=== PATIENT | male | born 1990 | race Two or more races ===

== ENCOUNTER 2019-04-14 18:26 | Emergency (ER) | payer SELFPAY ==
[~2019-04-14] VITALS: Ht 188 cm; Wt 97.5 kg
[2019-04-14] MEDS ORDERED: SODIUM CHLORIDE 0.9% 1,000 ML IV ONE ×2 (18:45→20:00)
[2019-04-14 19:22] LABS: Basophils # (auto) 0 uL; Basophils % (auto) 0.2 % (0.0-2.0); Eosinophils # (auto) 0.1 uL; Eosinophils % (auto) 0.5 % (0.0-7.0); Hemoglobin 14.7 g/dL (13.5-17.5); Lymphocytes # (auto) 1.6 uL; Lymphocytes % (auto) 12.9 % (10.0-50.0); Mean Corpuscular Hemoglobin 32.2 pg (28.0-32.0); Mean Corpuscular Hgb Conc. 34.1 g/dL (32.0-36.0); Mean Corpuscular Volume 94.4 fL (80.0-100.0); Monocytes # (auto) 0.9 uL; Monocytes % (auto) 7.3 % (0.0-12.0); Neutrophils # (auto) 9.7 uL; Neutrophils % (auto) 79.1 % (37.0-80.0); Platelet Count (auto) 225 10^3/uL (140-450); Red Blood Cells 4.55 10^6/uL (4.5-5.90); Red Cell Distribution Width 13.2 % (11.8-14.3); White Blood Cell 12.2 10^3/uL (4.4-10.8)
[2019-04-14 19:41] LABS: Salicylate 2.8 mg/dL (2.8-20.0)
[2019-04-14 19:42] LABS: Acetaminophen < 2.0 ug/mL (10-30)
[2019-04-14 19:44] LABS: Anion Gap 8 (5-15); BUN/Creatinine Ratio 11.4; Blood Alcohol < 3.0 mg/dL (0-5); Blood Urea Nitrogen 12 mg/dL (7-18); Calcium 8.7 mg/dL (8.5-10.1); Carbon Dioxide 29 mmol/L (21-32); Chloride 106 mmol/L (98-107); GFR African American 108 mL/min; GFR Non-African American 89 mL/min; Glucose 113 mg/dL (74-106); Magnesium 2.4 mg/dL (1.6-2.6); Potassium 3.6 mmol/L (3.5-5.1); Sodium 143 mmol/L (136-145)
[2019-04-14 19:53] LABS: Alanine Aminotransferase 131 U/L (16-61); Alkaline Phosphatase 110 U/L (45-117); Aspartate Aminotransferase 53 U/L (15-37); Bilirubin, Total 0.3 mg/dL (0.2-1.0); Total Protein 7.9 g/dL (6.4-8.2)
[2019-04-14] MEDS ORDERED: NALOXONE HCL 0.4 MG/ML VIAL IV ONE (20:00)
[2019-04-14 21:38] LABS: Urine Bacteria NONE SEEN /hpf (None Seen); Urine Blood Negative /uL (Negative); Urine Hyaline Cast MANY /lpf (0 - 2); Urine Mucus FEW (None Seen); Urine Specific Gravity 1.026 (1.001-1.035); Urine WBC 3 /hpf (0 - 3)
[2019-04-14 21:45] LABS: Alcohol, Urine < 3.0 mg/dL (0-5); Amphetamine Screen, Urine NEGATIVE (NEGATIVE); Barbiturate Scree,Urine NEGATIVE (NEGATIVE); Benzodiazephine Screen, Urine NEGATIVE (NEGATIVE); Cannabinoid Screen, Urine POSITIVE (NEGATIVE); Cocaine Screen, Urine NEGATIVE (NEGATIVE); Opiate Scree,Urine POSITIVE (NEGATIVE); Phencyclidine Screen, Urine NEGATIVE (NEGATIVE)
[2019-04-14 22:40] VITALS: BP 123/81
== END 2019-04-14 22:26 | disposition home or self-care (01) ==
LOC: ER 18:36
DX: K70.31 Alcoholic cirrhosis of liver with ascites (principal); R41.82 Altered mental status, unspecified; F11.10 Opioid abuse, uncomplicated; F12.10 Cannabis abuse, uncomplicated; N18.9 Chronic kidney disease, unspecified
CPT/HCPCS: 36415; 80053; 80307; 80320; 80329; 81001; 82140; 83735; 85025; 93005; 96361; 96374; 99284; J2310